=== PATIENT | female | born 1930 | race Caucasian/White ===

== ENCOUNTER → 2016-06-16 | Outpatient (CLI) | payer MEDICARE, BC ==
[~2016-06-16] MED LIST: AMLO5TAB66 PO; ASPI-611 PO; CALC-144 PO; ESTR0.3T26 PO; EZET1TAB33 PO; FISH1CAP28 PO; PANT40TA25 PO
== END ==
LOC: WC.BC 09:56
PROVIDERS: ATTEND Obstetrics & Gynecology
DX: Z12.31 Encounter for screening mammogram for malignant neoplasm of breast (principal); N64.59 Other signs and symptoms in breast; N64.89 Other specified disorders of breast; E28.39 Other primary ovarian failure; M85.89 Other specified disorders of bone density and structure, multiple sites; N95.8 Other specified menopausal and perimenopausal disorders; Z78.0 Asymptomatic menopausal state; Z82.62 Family history of osteoporosis; Z87.828 Personal history of other (healed) physical injury and trauma; Z90.722 Acquired absence of ovaries, bilateral
CPT/HCPCS: 77063; 77080; G0202